=== PATIENT | male | born 1970 | race African-American/Black ===

== ENCOUNTER 2019-09-21 11:37 | Outpatient (CLI) | payer BC | END 2019-09-21 21:09 | disposition home or self-care (01) | LOC: RAD 11:37 | DX: N30.01 Acute cystitis with hematuria (principal) ==

== ENCOUNTER 2019-10-13 10:13 | Outpatient (CLI) | payer BC | END 2019-10-13 20:57 | disposition home or self-care (01) | LOC: US 10:13 | DX: N30.01 Acute cystitis with hematuria (principal); Z87.442 Personal history of urinary calculi ==